=== PATIENT | female | born 1960 | race Caucasian/White ===

== ENCOUNTER → 2016-10-29 | Outpatient (CLI) | payer OTHER ==
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
== END | disposition home or self-care (01) ==
LOC: SMRI 12:40
DX: M54.2 Cervicalgia (principal); M47.892 Other spondylosis, cervical region; M50.223 Other cervical disc displacement at C6-C7 level; M48.02 Spinal stenosis, cervical region; M25.78 Osteophyte, vertebrae
CPT/HCPCS: 72141